=== PATIENT | female | born 1950 | race Caucasian/White ===

== ENCOUNTER 2017-01-01 16:04 | Emergency (ER) | payer OTHER ==
[~2017-01-01] VITALS: Ht 172.7 cm; Wt 99.1 kg
[2017-01-01 20:17] LABS: EOSINOPHIL (%) 2.6 % (0-5); EOSINOPHIL COUNT 0.2 K/uL (0-0.3); IMMATURE GRANULOCYTE (%) 0.2 % (0.0-0.7); IMMATURE GRANULOCYTE COUNT 0.2 K/uL; MCH 30.8 PG (29.0-34.0); MCHC 32.9 G/DL (30.0-36.0); MCV 93.8 FL (83-99); MEAN PLAT.VOLUME 9.4 uM^3 (9.5-12.4); MONOCYTE (%) 8.6 % (3-12); MONOCYTE COUNT 0.7 K/uL (0-0.8); NEUTROPHIL COUNT 6.4 K/uL (1.8-6.4); PLATELET COUNT 225 K/uL (156-360); RBC DIS.WIDTH-CV 12.8 % (11.8-14.6); RBC DIS.WIDTH-SD 42.6 % (39-53); RED BLOOD COUNT 4.48 M/uL (3.80-5.20); WHITE BLOOD COUNT 8.4 K/uL (4.1-10.2)
[2017-01-01 20:31] LABS: CHLORIDE 107 mEq/L (99-109); POTASSIUM 4.5 mEq/L (3.7-5.4); SODIUM 142 mEq/L (136-147)
[2017-01-01 20:33] LABS: GLUCOSE 101 mg/dL (70-99)
[2017-01-01 20:34] LABS: ANION GAP 8 MEQ/L (2-14)
[2017-01-01 20:36] LABS: GFR ESTIMATE (CALCULATED) > 59 mL/min/
[2017-01-01 20:37] LABS: UREA NITROGEN (BUN) 18 mg/dL (9-23)
[2017-01-01] MEDS ORDERED: NORCO 5/3251 TABLET PO (21:49)
[2017-01-01 22:20] VITALS: BP 144/92
== END 2017-01-01 22:20 | disposition home or self-care (01) ==
LOC: EME → EDBD 16:04 → EME 16:04
PROVIDERS: Emergency Medicine
PROC: 2W3RX1Z Immobilization of Left Lower Leg using Splint (ICD-10-PCS; principal; 2017-01-01)
DX: S82.892A Other fracture of left lower leg, initial encounter for closed fracture (principal); W18.30XA Fall on same level, unspecified, initial encounter; G35 Multiple sclerosis
CPT/HCPCS: 73610; 80048; 85025; 86850; 86900; 86901; 99281; 99285

== ENCOUNTER → 2017-01-03 | Outpatient (CLI) | payer OTHER ==
[~2017-01-03] MED LIST: NORCO 5/3251 TABLET PO
== END | disposition home or self-care (01) ==
LOC: CDC 11:50
DX: R94.31 Abnormal electrocardiogram [ECG] [EKG] (principal); M25.572 Pain in left ankle and joints of left foot; S82.842A Displaced bimalleolar fracture of left lower leg, initial encounter for closed fracture
CPT/HCPCS: 93000

== ENCOUNTER 2017-01-07 18:37 | Emergency (ER) | payer OTHER ==
[~2017-01-07] VITALS: Ht 172.7 cm; Wt 90.9 kg
[~2017-01-07 18:37] MED LIST changes: +COPAXONE40 MG/1 ML SC; +VITAMIN B-6100 MG PO
[2017-01-07] MEDS ORDERED: PERCOCET 5/31 TABLET PO (21:52)
[2017-01-07 22:00] VITALS: BP 120/58
== END 2017-01-08 00:03 | disposition home or self-care (01) ==
LOC: EME 18:37
DX: S82.892A Other fracture of left lower leg, initial encounter for closed fracture (principal); S86.212A Strain of muscle(s) and tendon(s) of anterior muscle group at lower leg level, left leg, initial encounter; W18.30XA Fall on same level, unspecified, initial encounter; G35 Multiple sclerosis; I10 Essential (primary) hypertension
CPT/HCPCS: 93971; 99281; 99283

== ENCOUNTER 2017-01-11 10:56 | Inpatient (IN) | payer OTHER ==
[~2017-01-11] VITALS: Ht 164.6 cm; Wt 83.9 kg
[~2017-01-11 10:56] MED LIST changes: +PERCOCET 5/31 TABLET PO
[2017-01-11] MEDS ORDERED: ZANAFLEX4 M1 PO (11:28)
[2017-01-11] MEDS ORDERED: SKELAXIN800 MG PO (11:28)
[2017-01-11] MEDS ORDERED: LEXAPRO20 MG PO (11:29)
[2017-01-11] MEDS ORDERED: SYNTHROID25 MCG PO (11:30)
[2017-01-11] MEDS ORDERED: LISINOPRIL5 MG PO (11:31)
[2017-01-11] MEDS ORDERED: NORVASC5 MG PO (11:31)
[2017-01-11] MEDS ORDERED: ONCE DAILY1 EACH PO (11:31)
[2017-01-11] MEDS ORDERED: CALCIUM + D3 E1 EACH PO (11:32)
[2017-01-11] MEDS ORDERED: VITAMIN C1000 MG PO (11:32)
[2017-01-11] MEDS ORDERED: VITAMIN D-32000 UNI2 PO (11:32)
[2017-01-11] MEDS ORDERED: THERACRAN650 MG PO (11:33)
[2017-01-11] MEDS ORDERED: VITAMIN B-2100 MG PO (11:33)
[2017-01-11 11:39] VITALS: BP 134/70
[2017-01-11 18:50] VITALS: BP 138/71
[2017-01-11 22:29] VITALS: BP 134/70
[2017-01-11 23:35] VITALS: BP 130/83
[2017-01-12 04:36] VITALS: BP 153/90
[2017-01-12 07:37] VITALS: BP 144/85
[2017-01-12 11:46] VITALS: BP 131/66
== END 2017-01-12 13:06 | disposition short-term general hospital (02) | DRG 563 ==
LOC: SDC → 3EAST 22:22 → 2SOUTH 22:22 → 3EAST 22:55
DX: S82.842A Displaced bimalleolar fracture of left lower leg, initial encounter for closed fracture (principal); S72.432A Displaced fracture of medial condyle of left femur, initial encounter for closed fracture; F33.9 Major depressive disorder, recurrent, unspecified; S89.392A Other physeal fracture of lower end of left fibula, initial encounter for closed fracture; G35 Multiple sclerosis; I10 Essential (primary) hypertension; Y92.003 Bedroom of unspecified non-institutional (private) residence as the place of occurrence of the external cause; Z91.041 Radiographic dye allergy status; E66.01 Morbid (severe) obesity due to excess calories; Z68.30 Body mass index [BMI] 30.0-30.9, adult; R26.2 Difficulty in walking, not elsewhere classified
CPT/HCPCS: 73560; 73564; 73700; J0690; J1170; J1650; J2250; J3010; S0020

== ENCOUNTER 2017-06-20 11:51 | Emergency (ER) | payer OTHER ==
[~2017-06-20] VITALS: Ht 172.7 cm; Wt 94.9 kg
[~2017-06-20 11:51] MED LIST changes: +CALCIUM + D3 E1 EACH PO; +LEXAPRO20 MG PO; +LISINOPRIL5 MG PO; +NORVASC5 MG PO; +ONCE DAILY1 EACH PO; +SKELAXIN800 MG PO; +SYNTHROID25 MCG PO; +THERACRAN650 MG PO; +VITAMIN B-2100 MG PO; +VITAMIN C1000 MG PO; +VITAMIN D-32000 UNI2 PO; +ZANAFLEX4 M1 PO
[2017-06-20 14:30] VITALS: BP 146/91
== END 2017-06-20 15:09 | disposition home or self-care (01) ==
LOC: EME 11:51
DX: S06.0X0A Concussion without loss of consciousness, initial encounter (principal); W19.XXXA Unspecified fall, initial encounter; G35 Multiple sclerosis
CPT/HCPCS: 70450; 73090; 99281; 99284